=== PATIENT | male | born 1980 | race Two or more races ===

== ENCOUNTER 2020-01-08 19:15 | Emergency (ER) | payer SELFPAY ==
[~2020-01-08] VITALS: Ht 170.2 cm; Wt 90.9 kg
[~2020-01-08 19:15] MED LIST: CALCIUM CHLORIDE 1,000 MG/10 ML DISP.SYRIN ONE; EPINEPHrine SYRINGE 1 MG/10 ML SYRINGE ONE; MAGNESIUM SULFATE PREMIX 1 GM/100 ML BAG. IV ONE; NALOXONE 0.4 MG/ML VIAL. ONE; SODIUM BICARBONATE 50 MEQ/50 ML VIAL. ONE
--- NOTE | 2020-01-08 19:44 | PHYS DOC ---
General Adult HPI: HPI: 39-year-old male brought in by EMS after being found down at home. Per EMS history patient has a past medical history of diabetes. has a history of COVID +. They state patient was not feeling well this evening. From there history states patient did not feel well took a shower and was last seen 30 minutes prior to arrival. found patient down. EMS initiated CPR on there arrival. EMS CPR time 30 minutes. On arrival 1914hrs--- Patient asystole, no pulse, breaths by mask. CPR continued via ACLS protocal. Patient was intubated Patient without ROSC. Time of 1929hrs. Review of Systems: Review of Systems: Unable to obtain history due to to medical condition Heart Score: Risk Factors: Risk Factors: DM, Current or recent (<one month) smoker, HTN, HLP, family history of CAD, obesity. Risk Scores: Score 0 - 3: 2.5% MACE over next 6 weeks - Discharge Home Score 4 - 6: 20.3% MACE over next 6 weeks - Admit for Clinical Observation Score 7 - 10: 72.7% MACE over next 6 weeks - Early Invasive Strategies Physical Exam: PE: Constitutional: Unresponsive HENT: Normocephalic, [] Eyes: Fixed and dilated Neck: supple, Cardiovascular: Asystole no pulse Lungs & Thorax: Bilateral breath sounds while being bagged Abdomen: Abdomen soft Skin: Cool to the touch Back: No tenderness, no CVA tenderness. [] Extremities: No tenderness, no cyanosis, no clubbing, ROM intact, no edema. [] Neurologic: Unresponsive EKG: EKG: [] Radiology/Procedures: Radiology/Procedures: [] Course & Med Decision Making: Course & Med Decision Making Pertinent Labs and Imaging studies reviewed. (See chart for details) [] Dragon Disclaimer: Dragon Disclaimer: This electronic medical record was generated, in whole or in part, using a voice recognition dictation system. Departure Departure Impression: Primary Impression: Cardiac arrest Disposition: 20 Intubation Procedure Intubation Procedure Intub Indication: Respiratory failure Consent: Unable to give consent due to emergent nature. Medications Used: see nursing note Procedure: The patient was placed in the appropriate position. Intubation was performed [using glidscope] [7.5 cuffed] endotracheal tube. [secured with device]. Initial confirmation of placement included bilateral breath sounds, tube fogging, adequate chest rise, adequate pulse oximetry reading. The patient tolerated the procedure well. Complications: none. IMKE FARMER DO Jan 08, 2020 19:44
== END 2020-01-09 01:35 ==
LOC: EDBD 19:15 → ER 19:15
DX: I46.9 Cardiac arrest, cause unspecified (principal); U07.1 COVID-19
CPT/HCPCS: 31500; 99285; C9803; J0171; J2310; J3475; J3490; U0003